=== PATIENT | male | born 1960 | race Caucasian/White ===

== ENCOUNTER 2019-10-17 07:06 | Outpatient (CLI) | payer MEDICARE, SELFPAY ==
[2019-10-17 08:32] LABS: Alanine Aminotransferase 17 U/L (16-63); Albumin Level 3.4 g/dL (3.4-5.0); Alkaline Phosphatase 69 U/L (46-116); Aspartate Amino Transferase 9 U/L (15-37); Bilirubin,Total 0.2 mg/dL (0.00-1.00); Blood Urea Nitrogen 12 mg/dL (7-18); Calcium 9.2 mg/dL (8.5-10.1); Carbon Dioxide 29 mmol/L (21-32); Chloride 102 mmol/L (98-108); Cholesterol 163 mg/dL (0-200); Estimated Glomerular Filt Rate > 60; Glucose 162 mg/dL (70-99); HDL Direct 41 mg/dL (40-60); LDL Cholesterol Calculated 49 mg/dL (<130); Osmolality Calculated 293 mOsm/kg (285-295); Sodium 140 mmol/L (136-145); Total Protein 6.5 g/dL (6.4-8.2); Triglycerides 364 mg/dL (0-150)
[2019-10-19 10:38] LABS: Valproic Acid 78.2 mg/L (50.0-100.0)
== END 2019-10-17 07:07 | disposition home or self-care (01) ==
DX: Z79.899 Other long term (current) drug therapy (principal)
CPT/HCPCS: 36415; 80053; 80061; 80164

== ENCOUNTER 2020-08-29 10:42 | Outpatient (CLI) | payer MEDICARE, SELFPAY ==
--- NOTE | 2020-08-29 11:10 | ECG_ITS ---
Measurements Intervals [place] Rate: 83 P: 82 FL: 213 QRS: -34 QRSD: 106 T: 73 QT: 345 QTc: 406 Interpretive Statements SINUS RHYTHM WITH SINUS ARRHYTHMIA WITH FIRST DEGREE AV BLOCK LEFT AXIS DEVIATION INCOMPLETE RIGHT BUNDLE BRANCH BLOCK ABNORMAL ECG Electronically Signed On 08-29-2020 11:15:59 CDT by Dano Phan D.O.
[2020-08-29 11:41] LABS: Hemoglobin A1C 6.2 % (<5.7)
[2020-08-29 12:38] LABS: Alanine Aminotransferase 15 U/L (16-63); Albumin Level 3.6 g/dL (3.4-5.0); Alkaline Phosphatase 75 U/L (46-116); Anion Gap 10 mmol/L (8-16); Aspartate Amino Transferase < 10 U/L (15-37); Bilirubin,Total 0.3 mg/dL (0.00-1.00); Blood Urea Nitrogen 13 mg/dL (7-18); Calcium 9.5 mg/dL (8.5-10.1); Carbon Dioxide 26 mmol/L (21-32); Chloride 103 mmol/L (98-108); Cholesterol 141 mg/dL (0-200); Estimated Glomerular Filt Rate > 60; Glucose 111 mg/dL (70-99); HDL Direct 44 mg/dL (40-60); LDL Cholesterol Calculated 42 mg/dL (<130); Osmolality Calculated 289 mOsm/kg (285-295); Potassium 4.9 mmol/L (3.5-5.1); Sodium 139 mmol/L (136-145); Total Protein 6.8 g/dL (6.4-8.2); Triglycerides 275 mg/dL (0-150)
[2020-09-02 09:05] LABS: Valproic Acid 25.7 mg/L (50.0-100.0)
== END 2020-08-29 10:43 | disposition home or self-care (01) ==
DX: F31.75 Bipolar disorder, in partial remission, most recent episode depressed (principal); Z79.899 Other long term (current) drug therapy
CPT/HCPCS: 36415; 80053; 80061; 80164; 83036; 93005

== ENCOUNTER 2020-09-10 12:27 | Emergency (ER) | payer OTHER, SELFPAY ==
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
[2020-09-10 13:20] VITALS: BP 147/92; PULSE 108; RESP 20; TEMP 36.5; O2SAT 95
[2020-09-10] MEDS: KETOROLAC (*BKC) 60 MG/2 ML VIAL IM (14:24)
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
[2020-09-10 15:03] VITALS: PULSE 98; RESP 20; O2SAT 96
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
== END 2020-09-10 15:04 | disposition left against medical advice (07) ==
PROVIDERS: Emergency Provider Emergency Medicine
DX: S22.069A Unspecified fracture of T7-T8 vertebra, initial encounter for closed fracture (principal); V89.2XXA Person injured in unspecified motor-vehicle accident, traffic, initial encounter
CPT/HCPCS: 72128; 72131; 96372; 99282; 99284; J1885

== ENCOUNTER 2021-06-12 11:24 | Outpatient (CLI) | payer MEDICARE, SELFPAY ==
[2021-06-12 12:52] LABS: Free T4 Free Thyroxine 0.98 ng/dL (0.76-1.46); Thyroid Stimulating Hormone 0.47 uIU/mL (0.36-3.74)
== END 2021-06-12 11:25 | disposition home or self-care (01) ==
LOC: CHSLAB 11:27
DX: E03.9 Hypothyroidism, unspecified (principal)
CPT/HCPCS: 36415; 84439; 84443

== ENCOUNTER 2021-12-05 13:59 | Outpatient (CLI) | payer MEDICARE, SELFPAY ==
[2021-12-08 15:53] LABS: Valproic Acid 78.9 mg/L (50.0-100.0)
== END 2021-12-05 14:00 | disposition home or self-care (01) ==
LOC: CHSLAB 14:09
DX: Z79.899 Other long term (current) drug therapy (principal)
CPT/HCPCS: 36415; 80164

== ENCOUNTER 2022-04-07 08:28 | Outpatient (CLI) | payer MEDICARE, SELFPAY ==
[2022-04-07 09:56] LABS: Cholesterol 106 mg/dL (0-200); HDL Direct 47 mg/dL (40-60); LDL Cholesterol Calculated 32 mg/dL (<130); Triglycerides 136 mg/dL (0-150)
== END 2022-04-07 08:29 | disposition home or self-care (01) ==
DX: Z79.899 Other long term (current) drug therapy (principal)
CPT/HCPCS: 36415; 80061

== ENCOUNTER 2022-06-22 11:13 | Emergency (ER) | payer MEDICARE, SELFPAY ==
--- NOTE | ~2022-06-22 | XR_ITS ---
XR shoulder RT min 2V 06/22/2022 12:47 Indication: Right shoulder pain. Procedure: 4 views right shoulder Comparison: No prior studies for comparison. Findings: There is mild glenohumeral joint osteoarthritis. There is also osteoarthritis of the acromi oclavicular joint. Normal mineralization. No fracture or traumatic malalignment. No foreign bodies. Impression: 1: Polyarticular osteoarthritis. Reviewed, dictated and finalized at location B. EXAMINER Impression: 1: Polyarticular osteoarthritis.
[2022-06-22 11:15] VITALS: BP 141/94; PULSE 120; RESP 18; TEMP 36.9; O2SAT 97
[2022-06-22] MEDS: CYCLOBENZAPRINE HCL 10 MG TABLET PO (11:46)
[2022-06-22] MEDS: KETOROLAC (*BKC) 60 MG/2 ML VIAL IM (11:46)
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
[2022-06-22 13:29] VITALS: BP 140/95; PULSE 107; RESP 18; TEMP 37.2; O2SAT 95
--- NOTE | 2022-06-22 13:30 | PC.NURSE ---
On 06/22/22, the student, [isaac lofton ], provided care and completed [facility] documentation on this patient. I have reviewed the student's documentation and agree with the findings.
== END 2022-06-22 13:30 | disposition home or self-care (01) ==
PROVIDERS: Emergency Provider Emergency Medicine
DX: M19.011 Primary osteoarthritis, right shoulder (principal); I10 Essential (primary) hypertension; J45.909 Unspecified asthma, uncomplicated; F32.A Depression, unspecified; Z79.84 Long term (current) use of oral hypoglycemic drugs
CPT/HCPCS: 73030; 96372; 99283; A9270; J1885

== ENCOUNTER 2022-08-20 15:30 | Outpatient (CLI) | payer MEDICARE, SELFPAY ==
[2022-08-20 15:56] LABS: Anion Gap 7 mmol/L (8-16); Blood Urea Nitrogen 12 mg/dL (7-18); Carbon Dioxide 28 mmol/L (21-32); Chloride 102 mmol/L (98-108); Estimated Glomerular Filt Rate > 60; Glucose 129 mg/dL (70-99); Osmolality Calculated 285 mOsm/kg (285-295); Potassium 4.9 mmol/L (3.5-5.1); Sodium 137 mmol/L (136-145)
== END 2022-08-20 15:31 | disposition home or self-care (01) ==
LOC: CHSLAB 15:34
DX: E87.5 Hyperkalemia (principal)
CPT/HCPCS: 36415; 80048

== ENCOUNTER 2022-11-18 11:57 | Outpatient (CLI) | payer MEDICARE, SELFPAY ==
[2022-11-18 12:23] LABS: Hemoglobin A1C 6.4 % (<5.7)
[2022-11-18 12:33] LABS: Anion Gap 5 mmol/L (8-16); Blood Urea Nitrogen 15 mg/dL (7-18); Carbon Dioxide 29 mmol/L (21-32); Chloride 104 mmol/L (98-108); Estimated Glomerular Filt Rate > 60; Glucose 104 mg/dL (70-99); Osmolality Calculated 286 mOsm/kg (285-295); Potassium 5.5 mmol/L (3.5-5.1); Sodium 138 mmol/L (136-145)
== END 2022-11-18 11:58 | disposition home or self-care (01) ==
LOC: CHSLAB 12:03
DX: I10 Essential (primary) hypertension (principal); E11.9 Type 2 diabetes mellitus without complications
CPT/HCPCS: 36415; 80048; 83036

== ENCOUNTER 2022-11-26 12:00 | Outpatient (CLI) | payer MEDICARE, SELFPAY ==
[2022-11-26 12:54] LABS: Anion Gap 8 mmol/L (8-16); Blood Urea Nitrogen 19 mg/dL (7-18); Calcium 9.2 mg/dL (8.5-10.1); Carbon Dioxide 29 mmol/L (21-32); Chloride 103 mmol/L (98-108); Estimated Glomerular Filt Rate > 60; Glucose 101 mg/dL (70-99); Osmolality Calculated 292 mOsm/kg (285-295); Potassium 5.5 mmol/L (3.5-5.1); Sodium 140 mmol/L (136-145)
== END 2022-11-26 12:01 | disposition home or self-care (01) ==
DX: E87.5 Hyperkalemia (principal)
CPT/HCPCS: 36415; 80048

== ENCOUNTER 2023-01-22 14:28 | Outpatient (CLI) | payer MEDICARE, SELFPAY ==
[2023-01-22 15:57] LABS: Alanine Aminotransferase 12 U/L (16-63); Albumin Level 3.2 g/dL (3.4-5.0); Alkaline Phosphatase 52 U/L (46-116); Anion Gap 9 mmol/L (8-16); Aspartate Amino Transferase < 10 U/L (15-37); Bilirubin,Total 0.3 mg/dL (0.00-1.00); Blood Urea Nitrogen 20 mg/dL (7-18); Calcium 9.3 mg/dL (8.5-10.1); Carbon Dioxide 28 mmol/L (21-32); Chloride 102 mmol/L (98-108); Estimated Glomerular Filt Rate > 60; Glucose 157 mg/dL (70-99); Osmolality Calculated 293 mOsm/kg (285-295); Potassium 5.4 mmol/L (3.5-5.1); Sodium 139 mmol/L (136-145); Total Protein 6.1 g/dL (6.4-8.2)
[2023-01-25 07:22] LABS: Valproic Acid 80.2 mg/L (50.0-100.0)
== END 2023-01-22 14:29 | disposition home or self-care (01) ==
DX: Z79.899 Other long term (current) drug therapy (principal)
CPT/HCPCS: 36415; 80053; 80164

== ENCOUNTER 2023-01-28 13:26 | Outpatient (CLI) | payer MEDICARE, SELFPAY ==
[2023-01-28 13:54] LABS: Basophils Absolute Auto 0.04 K/mm3 (0.00-0.10); Basophils Percent Auto 0.6 % (0.0-1.0); Eosinophils Absolute Auto 0.06 K/mm3 (0.02-0.50); Eosinophils Percent Auto 0.9 % (1.0-6.0); Hematocrit 41.3 % (40.0-54.0); Hemoglobin 13.9 g/dL (14.0-18.0); Immature Granulocyte Absolute 0.01 K/mm3 (0.00-0.00); Immature Granulocyte Percent A 0.1 % (0.0-0.0); Lymphocytes Percent Auto 32.8 % (18.0-42.0); Mean Corpuscular HGB Conc 33.7 g/dL (32.0-36.0); Mean Corpuscular Hemoglobin 31.9 pg (27.0-31.0); Mean Corpuscular Volume 94.7 fL (78.0-102.0); Mean Platelet Volume 10.2 fl (8.7-11.0); Monocytes Absolute Auto 0.82 K/mm3 (0.10-0.90); Monocytes Percent Auto 12.2 % (2.0-11.0); Neutrophils Absolute Auto 3.6 K/mm3 (1.7-7.2); Neutrophils Percent Auto 53.4 % (50.0-70.0); Platelet Count Result 168 K/mm3 (150-420); Red Blood Count 4.36 M/mm3 (4.70-6.10); Red Cell Distribution Width 13.4 % (11.6-14.4); White Blood Count 6.7 K/mm3 (4.8-10.8)
[2023-01-28 14:20] LABS: Hemoglobin A1C 6.6 % (<5.7)
== END 2023-01-28 13:27 | disposition home or self-care (01) ==
LOC: CHSLAB 13:32
DX: E11.9 Type 2 diabetes mellitus without complications (principal); E11.40 Type 2 diabetes mellitus with diabetic neuropathy, unspecified; D64.9 Anemia, unspecified
CPT/HCPCS: 36415; 83036; 85025

== ENCOUNTER 2023-09-01 07:55 | Outpatient (CLI) | payer MEDICARE, SELFPAY ==
[2023-09-01 09:00] LABS: Alanine Aminotransferase 14 U/L (16-63); Albumin Level 3.4 g/dL (3.4-5.0); Alkaline Phosphatase 54 U/L (46-116); Anion Gap 7 mmol/L (4-12); Aspartate Amino Transferase 10 U/L (15-37); Bilirubin,Total 0.2 mg/dL (0.00-1.00); Blood Urea Nitrogen 23 mg/dL (7-18); Calcium 9.5 mg/dL (8.5-10.1); Carbon Dioxide 32 mmol/L (21-32); Chloride 101 mmol/L (98-108); Estimated Glomerular Filt Rate > 60; Glucose 127 mg/dL (70-99); Osmolality Calculated 295 mOsm/kg (285-295); Potassium 4.8 mmol/L (3.5-5.1); Sodium 140 mmol/L (136-145); Total Protein 6.6 g/dL (6.4-8.2)
[2023-09-03 09:29] LABS: Valproic Acid 73.9 mg/L (50.0-100.0)
== END 2023-09-01 07:56 | disposition home or self-care (01) ==
LOC: CHSLAB 08:01
DX: F31.31 Bipolar disorder, current episode depressed, mild (principal); Z79.899 Other long term (current) drug therapy
CPT/HCPCS: 36415; 80053; 80164

== ENCOUNTER 2023-12-29 11:58 | Outpatient (CLI) | payer MEDICARE, SELFPAY ==
[2023-12-29 12:22] LABS: Basophils Absolute Auto 0.05 K/mm3 (0.00-0.10); Basophils Percent Auto 0.8 % (0.0-1.0); Eosinophils Absolute Auto 0.19 K/mm3 (0.02-0.50); Eosinophils Percent Auto 2.9 % (1.0-6.0); Hematocrit 41.4 % (40.0-54.0); Hemoglobin 13.8 g/dL (14.0-18.0); Immature Granulocyte Absolute 0.04 K/mm3 (0.00-0.00); Immature Granulocyte Percent A 0.6 % (0.0-0.0); Lymphocytes Percent Auto 50.6 % (18.0-42.0); Mean Corpuscular HGB Conc 33.3 g/dL (32-36); Mean Corpuscular Hemoglobin 31.7 pg (27.0-31.0); Mean Corpuscular Volume 95.2 fL (78.0-102.0); Mean Platelet Volume 9.5 fl (8.7-11.0); Monocytes Absolute Auto 0.54 K/mm3 (0.10-0.90); Monocytes Percent Auto 8.3 % (2.0-11.0); Neutrophils Percent Auto 36.8 % (50.0-70.0); Platelet Count Result 202 K/mm3 (150-420); Red Blood Count 4.35 M/mm3 (4.70-6.10); Red Cell Distribution Width 12.8 % (11.6-14.4); White Blood Count 6.5 K/mm3 (4.8-10.8)
[2023-12-29 20:17] LABS: Alanine Aminotransferase 13 U/L (6-50); Alkaline Phosphatase 61 U/L (38-126); Anion Gap 11 mmol/L (4-12); Aspartate Amino Transferase 20 U/L (17-59); Bilirubin,Total 0.3 mg/dL (0.2-1.3); Blood Urea Nitrogen 20 mg/dL (9-20); Calcium 9.6 mg/dL (8.4-10.2); Carbon Dioxide 25 mmol/L (22-30); Chloride 100 mmol/L (98-107); Cholesterol 126 mg/dL (0-200); Estimated Glomerular Filt Rate > 60; Glucose 139 mg/dL (65-110); HDL Direct 41 mg/dL; LDL Cholesterol Calculated 20 mg/dL (<130); Osmolality Calculated 286 mOsm/kg (285-295); Potassium 4.9 mmol/L (3.4-5.0); Sodium 136 mmol/L (137-145); Triglycerides 324 mg/dL (<150)
[2023-12-29 20:43] LABS: Prostate Specific Antigen 1.6 ng/mL (< OR = 4.0)
[2023-12-31 04:08] LABS: Vitamin D 25 Hydroxy 31 ng/mL (30-100)
[2023-12-31 12:36] LABS: Hemoglobin A1C 7.2 % (<5.7)
== END 2023-12-29 11:59 | disposition home or self-care (01) ==
DX: E11.9 Type 2 diabetes mellitus without complications (principal); Z12.5 Encounter for screening for malignant neoplasm of prostate; F31.31 Bipolar disorder, current episode depressed, mild; E78.5 Hyperlipidemia, unspecified; E03.9 Hypothyroidism, unspecified; G47.33 Obstructive sleep apnea (adult) (pediatric); Z79.899 Other long term (current) drug therapy
CPT/HCPCS: 36415; 80053; 80061; 82306; 82607; 83036; 84153; 84443; 85025; G0103